=== PATIENT | female | born 1985 | race Caucasian/White ===

== ENCOUNTER 2016-11-22 08:20 | Emergency (ER) | payer SELFPAY ==
[2016-11-22 09:20] LABS: HCG SERUM NEGATIVE (NEGATIVE)
[2016-11-22 09:25] LABS: BASOPHILS 0.1 % (0-2); EOSINOPHILS 3.5 % (0-7); HEMOGLOBIN 12.8 g/dL (12-16); IMMATURE GRANULOCYTES 0.2 % (0-5); MCH 30.5 pg (26.0-34.0); MCHC 32.8 g/dL (31.0-37.0); MCV 92.9 fL (80.0-100.0); MEAN PLATELET VOLUME 9.2 fL (7.4-10.4); MONOCYTES 7.3 % (2-11); NEUTROPHILS 74.9 % (40-80); PLATELET COUNT 243 10x3/uL (130-400); RDW 12.7 % (11.5-14.5); WBC 10.1 10x3/uL (4.8-10.8)
[2016-11-22 09:50] LABS: APPEARANCE HAZY (CLEAR); BILIRUBIN NEGATIVE (NEGATIVE); COLOR STRAW (YELLOW); GLUCOSE NEGATIVE (NEGATIVE); KETONE NEGATIVE (NEGATIVE); LEUKOCYTE ESTERASE TRACE (NEGATIVE); NITRITE NEGATIVE (NEGATIVE); PROTEIN NEGATIVE (NEGATIVE); SPECIFIC GRAVITY 1.005 (1.005-1.020); UROBILINOGEN NORMAL (NORMAL)
[2016-11-22 09:53] LABS: BACTERIA MODERATE /hpf (NONE SEEN); RED CELLS - URINE 0-5 /hpf (0-5)
[2016-11-22 10:00] LABS: ALKALINE PHOSPHATASE 66 U/L (46-116); ALT (SGPT) 20 U/L (10-68); CALC OSMOLALITY 269 mosm/kg (275-300); CALCIUM 8.6 mg/dL (8.5-10.1); CARBON DIOXIDE 29.6 mmol/L (21.0-32.0); CHLORIDE - SERUM 99 mmol/L (98-107); CREATININE - SERUM 0.7 mg/dL (0.6-1.3); GLUCOSE 83 mg/dL (74-106); POTASSIUM - SERUM 3.4 mmol/L (3.5-5.1); PROTEIN - SERUM 6.7 g/dL (6.4-8.2); SODIUM 137 mmol/L (136-145); UREA NITROGEN 5 mg/dL (7-18); eGFR NON AFRICAN AMERICAN > 90 mL/min (90-120)
== END 2016-11-22 12:34 | disposition home or self-care (01) ==
LOC: D.ER 08:20
PROVIDERS: Emergency Medicine
DX: R10.9 Unspecified abdominal pain (principal); N83.209 Unspecified ovarian cyst, unspecified side; H40.9 Unspecified glaucoma

== ENCOUNTER 2018-02-13 03:52 | Emergency (ER) | payer MEDICAID ==
[~2018-02-13] VITALS: Ht 167.6 cm; Wt 68.2 kg
[2018-02-13 03:55] VITALS: Ht 167.6 cm; Wt 68.2 kg
[2018-02-13] MEDS ORDERED: IMITREX100 MG (03:56)
[2018-02-13] MEDS ORDERED: ADDERALL 30 MG30 MG PO (03:57)
[2018-02-13] MEDS ORDERED: MEDROL DOSE PACK4 MG PO (04:25)
[2018-02-13] MEDS ORDERED: BENADRYL50 MG PO (04:26)
[2018-02-13 04:34] VITALS: BP 141/100
== END 2018-02-13 04:28 | disposition home or self-care (01) ==
LOC: D.ER 03:52
DX: T39.8X5A Adverse effect of other nonopioid analgesics and antipyretics, not elsewhere classified, initial encounter (principal); Y92.019 Unspecified place in single-family (private) house as the place of occurrence of the external cause